=== PATIENT | female | born 1995 | race Caucasian/White ===

== ENCOUNTER 2018-03-03 11:39 | Emergency (ER) | payer SELFPAY ==
[2018-03-03] MEDS ORDERED: FLUCONAZOLE 100 MG TAB ONE (13:00)
[2018-03-03 14:29] LABS: Urine Blood NEGATIVE (NEG); Urine Glucose NEGATIVE (NEG); Urine Protein TRACE (NEG)
--- NOTE | 2018-03-03 14:35 | EDPHYS ---
Physician Documentation [facility] Name: Silvia Quintanilla Age: 22 yrs Sex: Female : 1995 Arrival Date: 03/03/2018 Time: 11:43 Bed 13 Private MD: None, None ED Physician Amadou Jason HPI: 03/03 12:54 This 22 yrs old Female presents to ER via Ambulatory with complaints of kav Abdominal Pain. 12:59 The patient presents with vaginal discharge, that is a moderate amount of white kav discharge, patient has many times. Onset: The symptoms/episode began/occurred acutely, 1 week(s) ago. Modifying factors: The symptoms are alleviated by nothing, the symptoms are aggravated by sexual intercourse, urinating. Associated signs and symptoms: Pertinent positives: cramping, urinary frequency, Pertinent negatives: fever. Severity of symptoms: At their worst the symptoms were moderate, last week. The patient is sexually active, reportedly has a single partner, does not use protection during intercourse. The patient's method of control includes nothing. The patient has experienced similar episodes in the past, chronically. 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 - Social history:: Smoking status: Patient uses tobacco products, denies chronic smoking, but will smoke occasionally. - Ebola Screening: : Patient denies travel to an Ebola-affected area in the 21 days before illness onset. - Family history:: not pertinent. - Hospitalizations: : No recent hospitalization is reported. ROS: 12:59 Constitutional: Negative for fever, chills, and weight loss, Eyes: Negative for injury, kav pain, redness, and discharge, ENT: Negative for injury, pain, and discharge, Neck: Negative for injury, pain, and swelling, Cardiovascular: Negative for chest pain, palpitations, and edema, Respiratory: Negative for shortness of breath, cough, wheezing, and pleuritic chest pain, Abdomen/GI: Negative for abdominal pain, nausea, vomiting, diarrhea, and constipation, Back: Negative for injury and pain, MS/Extremity: Negative for injury and deformity, Skin: Negative for injury, rash, and discoloration, Neuro: Negative for headache, weakness, numbness, tingling, and seizure, Psych: Negative for depression, anxiety, suicide ideation, homicidal ideation, and hallucinations, Allergy/Immunology: Negative for hives, rash, and allergies, Endocrine: Negative for neck swelling, polydipsia, polyuria, polyphagia, and marked weight changes, Hematologic/Lymphatic: Negative for swollen nodes, abnormal bleeding, and unusual bruising. 12:59 : Positive for urinary frequency, vaginal discharge, vaginal itching. Exam: 12:59 Constitutional: This is a well developed, well nourished patient who is awake, alert, kav and in no acute distress. 13:03 Head/Face: Normocephalic, atraumatic. Eyes: Pupils equal round and reactive to light, kav extra-ocular motions intact. Lids and lashes normal. Conjunctiva and sclera are non-icteric and not injected. Cornea within normal limits. Periorbital areas with no swelling, redness, or edema. ENT: Nares patent. No nasal discharge, no septal abnormalities noted. Tympanic membranes are normal and external auditory canals are clear. Oropharynx with no redness, swelling, or masses, exudates, or evidence of obstruction, uvula midline. Mucous membranes moist. Neck: Trachea midline, no thyromegaly or masses palpated, and no cervical lymphadenopathy. Supple, full range of motion without nuchal rigidity, or vertebral point tenderness. No Meningismus. Chest/axilla: Normal chest wall appearance and motion. Nontender with no deformity. No lesions are appreciated. Cardiovascular: Regular rate and rhythm with a normal S1 and S2. No gallops, murmurs, or rubs. Normal PMI, no JVD. No pulse deficits. Respiratory: Lungs have equal breath sounds bilaterally, clear to auscultation and percussion. No rales, rhonchi or wheezes noted. No increased work of breathing, no retractions or nasal flaring. Abdomen/GI: Soft, non-tender, with normal bowel sounds. No distension or tympany. No guarding or rebound. No evidence of tenderness throughout. Back: No spinal tenderness. No costovertebral tenderness. Full range of motion. Skin: Warm, dry with normal turgor. Normal color with no rashes, no lesions, and no evidence of cellulitis. MS/ Extremity: Pulses equal, no cyanosis. Neurovascular intact. Full, normal range of motion. Neuro: Awake and alert, GCS 15, oriented to person, place, time, and situation. Cranial nerves II-XII grossly intact. Motor strength 5/5 in all extremities. Sensory grossly intact. Cerebellar exam normal. Normal gait. Psych: Awake, alert, with orientation to person, place and time. Behavior, mood, and affect are within normal limits. 13:03 : Pelvic Exam: Sexual behavior: the patient is sexually active, and reports a single partner, method of control is none. Vital Signs: 12:02 BP 114 / 63; Pulse 88; Resp 16; Temp 98.6(TE); Pulse Ox 100% on R/A; Weight 52.16 kg aj1 (R); Height 5 ft. 2 in. (157.48 cm) (R); Pain 0/10; 13:00 BP 103 / 59; Pulse 51; Resp 17; Pulse Ox 99% on R/A; tw2 14:10 BP 109 / 67; Pulse 53; Resp 17; Pulse Ox 99% on R/A; tw2 14:35 BP 98 / 58; Pulse 58; Resp 17; Pulse Ox 100% on R/A; tw2 12:02 Body Mass Index 21.03 (52.16 kg, 157.48 cm) aj1 Procedures: 14:10 STD culture: Urethral swab obtained and culture sent to lab. Patient tolerated well. 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 MDM: 13:04 Medical screening is not applicable. [facility] 03/03 12:58 Order name: GC (GONORR/CHLAMYDIA) Probe [facility] 03/03 12:58 Order name: Wet Prep; Complete Time: 14:33 [facility] 03/03 13:49 Order name: Urine Dipstick--Ancillary (enter results); Complete Time: 14:33 ag 03/03 13:49 Order name: Urine --Ancillary (enter results); Complete Time: 14:33 ag 03/03 12:58 Order name: Setup-Pelvic Exam; Complete Time: 13:46 [facility] 03/03 13:02 Order name: Urine Dipstick-Ancillary (obtain specimen); Complete Time: 13:46 [facility] 03/03 13:02 Order name: Urine Test (obtain specimen); Complete Time: 13:46 kav Administered Medications: 13:00 Drug: DiFLUcan 200 mg Route: PO; tw2 13:39 Follow up: Response: No adverse reaction tw2 13:02 CANCELLED (Duplicate Order): DiFLUcan 150 mg PO once kav Disposition: 17:21 Co-signature as Attending Physician, Amadou Jason MD I agree with the assessment and kdr plan of care. Disposition: 03/03/18 14:34 Discharged to Home. Impression: Vaginitis, vulvitis and vulvovaginitis in diseases classified elsewhere, Candidiasis of vulva and vagina. - Condition is Stable. - Prescriptions for Diflucan 100 mg Oral Tablet - take 2 tablet by ORAL route Day 1 for 1 day - then take one tablet by oral route every day for 14 days.; 16 tablet. Metronidazole 0.75 % Vaginal Gel - insert 37.5 milligram by VAGINAL route once daily As needed in the morning and evening; 1 tube. - Medication Reconciliation Form, Thank You Letter, Antibiotic Education, Prescription Opioid Use, Family Work Release form. - Follow up: Private Physician; When: 5 - 6 days; Reason: If symptoms return, Recheck today's complaints, Continuance of care, Re-evaluation by your physician. - Problem is new. - Symptoms have improved. Signatures: Dispatcher [employer] EDMelonie Villegas, MIO RN aj1 Amaodu Jason MD MD kdr Vern, Katherine, POWER BUILDER DEVELOPER POWER BUILDER DEVELOPER Juanita Reed, RN RN tw2 Corrections: (The following items were deleted from the chart) 13:02 12:56 DiFLUcan 150 mg PO once ordered. kav kav 14:37 14:34 03/03/2018 14:34 Discharged to Home. Impression: Vaginitis, vulvitis and kav vulvovaginitis in diseases classified elsewhere. Condition is Stable. Forms are Family Work Release, Medication Reconciliation Form, Thank You Letter, Antibiotic Education, Prescription Opioid Use. Follow up: Private Physician; When: 5 - 6 days; Reason: If symptoms return, Recheck today's complaints, Continuance of care, Re-evaluation by your physician. Problem is new. Symptoms have improved. kav 14:48 14:37 03/03/2018 14:34 Discharged to Home. Impression: Vaginitis, vulvitis and tw2 vulvovaginitis in diseases classified elsewhere; Candidiasis of vulva and vagina. Condition is Stable. Forms are Family Work Release, Medication Reconciliation Form, Thank You Letter, Antibiotic Education, Prescription Opioid Use. Follow up: Private Physician; When: 5 - 6 days; Reason: If symptoms return, Recheck today's complaints, Continuance of care, Re-evaluation by your physician. Problem is new. Symptoms have improved. kav
--- NOTE | 2018-03-03 14:35 | ER ---
Nurse's Notes [facility] Name: Silvia Quintanilla Age: 22 yrs Sex: Female : 1995 Arrival Date: 03/03/2018 Time: 11:43 Bed 13 Private MD: None, None Diagnosis: Vaginitis, vulvitis and vulvovaginitis in diseases classified elsewhere;Candidiasis of vulva and vagina Presentation: 03/03 12:00 Presenting complaint: Patient states: "I've been having issues for the past year with aj1 yeast infections, but the past week its been getting worse. I took monostat 2 weeks ago and it was better for a few days, but then it came back worse and now I'm having cramping, discharge and I have to pee all the time" Reports yellow vaginal discharge. Transition of care: patient was not received from another setting of care. Onset of symptoms was February 2018. Risk Assessment: Do you want to hurt yourself or someone else? Patient reports no desire to harm self or others. Initial Sepsis Screen: Does the patient meet any 2 criteria? No. Patient's initial sepsis screen is negative. Does the patient have a suspected source of infection? No. Patient's initial sepsis screen is negative. Care prior to arrival: None. 12:00 Method Of Arrival: Ambulatory aj1 12:00 Acuity: KUMAR 4 aj1 Triage Assessment: 12:02 General: Appears in no apparent distress. uncomfortable, Behavior is calm, cooperative, aj1 appropriate for age. Pain: Denies pain. Neuro: Level of Consciousness is awake, alert, obeys commands. Cardiovascular: Patient's skin is warm and dry. Respiratory: Airway is patent Respiratory effort is even, unlabored, Respiratory pattern is regular, symmetrical. GI: Abdomen is non-distended, Reports cramping, Patient currently denies diarrhea, nausea, vomiting. : Reports discharge, from vagina that is yellow, urgency, urinary frequency, vaginal itching. Derm: Skin is pink, warm \\T\\ dry. normal. Musculoskeletal: Circulation, motion, and sensation intact. 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 - Social history:: Smoking status: Patient uses tobacco products, denies chronic smoking, but will smoke occasionally. - Ebola Screening: : Patient denies travel to an Ebola-affected area in the 21 days before illness onset. - Family history:: not pertinent. - Hospitalizations: : No recent hospitalization is reported. Screenin:08 Abuse screen: Denies threats or abuse. Nutritional screening: No deficits noted. tw2 Tuberculosis screening: No symptoms or risk factors identified. Fall Risk None identified. Assessment: 13:00 General: Appears in no apparent distress. slender, Behavior is calm, cooperative, tw2 appropriate for age. Pain: Complains of pain in vaginal pain like a bad cramp. Neuro: Level of Consciousness is awake, alert, obeys commands, Oriented to person, place, time, situation. Cardiovascular: Denies chest pain, shortness of breath, Heart tones S1 S2 Patient's skin is warm and dry. Respiratory: Airway is patent Respiratory effort is even, unlabored, Respiratory pattern is regular, symmetrical, Breath sounds are clear bilaterally. GI: Abdomen is flat, Bowel sounds present X 4 quads. Abd is soft and non tender X 4 quads. : No signs and/or symptoms were reported regarding the genitourinary system. Derm: No signs and/or symptoms reported regarding the dermatologic system. Musculoskeletal: Range of motion: intact in all extremities. 14:07 Reassessment: Patient appears in no apparent distress at this time. No changes from tw2 previously documented assessment. Patient and/or family updated on plan of care and expected duration. Pain level reassessed. Patient is alert, oriented x 3, equal unlabored respirations, skin warm/dry/pink. 14:35 Reassessment: Patient appears in no apparent distress at this time. No changes from tw2 previously documented assessment. Patient and/or family updated on plan of care and expected duration. Pain level reassessed. Patient is alert, oriented x 3, equal unlabored respirations, skin warm/dry/pink. Vital Signs: 12:02 BP 114 / 63; Pulse 88; Resp 16; Temp 98.6(TE); Pulse Ox 100% on R/A; Weight 52.16 kg aj1 (R); Height 5 ft. 2 in. (157.48 cm) (R); Pain 0/10; 13:00 BP 103 / 59; Pulse 51; Resp 17; Pulse Ox 99% on R/A; tw2 14:10 BP 109 / 67; Pulse 53; Resp 17; Pulse Ox 99% on R/A; tw2 14:35 BP 98 / 58; Pulse 58; Resp 17; Pulse Ox 100% on R/A; tw2 12:02 Body Mass Index 21.03 (52.16 kg, 157.48 cm) aj1 ED Course: 11:43 Patient arrived in ED. mr 11:43 None, None is Private Physician. mr 12:02 Triage completed. aj1 12:02 Arm band placed on Patient placed in waiting room, Patient notified of wait time. aj1 12:26 [facility] kav 12:26 Amadou Jason MD is Attending Physician. kav 12:44 Juanita Higuera RN is Primary Nurse. tw2 12:45 Placed in gown. Bed in low position. Adult w/ patient. Pulse ox on. NIBP on. tw2 14:06 GC (GONORR/CHLAMYDIA) Probe Sent. tw2 14:06 Wet Prep Sent. tw2 14:06 Assist provider with pelvic exam: Set up pelvic tray. Performed by Amadou Jason MD tw2 Specimens sent to lab. Patient tolerated well. 14:47 Patient did not have IV access during this emergency room visit. tw2 Administered Medications: 13:00 Drug: DiFLUcan 200 mg Route: PO; tw2 13:39 Follow up: Response: No adverse reaction tw2 13:02 CANCELLED (Duplicate Order): DiFLUcan 150 mg PO once kav Outcome: 14:34 Discharge ordered by . kav 14:47 Discharged to home ambulatory, with significant other. tw2 14:47 Condition: stable 14:47 Discharge instructions given to patient, significant other, Instructed on discharge instructions, follow up and referral plans. medication usage, Demonstrated understanding of instructions, follow-up care, medications, Prescriptions given X 2. 14:48 Patient left the ED. tw2 Signatures: Melonie Dalton RN RN aj Amna Roth FNP SPORTS MEDICINE TRAINER ka Brittany Lr mr Juanita Higuera RN RN tw2
[2018-03-06 04:25] LABS: C.trachomatis RNA,TMA Not Detected (Not Detected)
== END 2018-03-03 14:48 | disposition home or self-care (01) ==
LOC: ER 11:39
DX: B37.3 Candidiasis of vulva and vagina (principal); Z88.5 Allergy status to narcotic agent; Z91.09 Other allergy status, other than to drugs and biological substances; F17.210 Nicotine dependence, cigarettes, uncomplicated
CPT/HCPCS: 81003; 81025; 87210; 87490; 87590; 99284

== ENCOUNTER 2018-07-21 08:31 | Emergency (ER) | payer SELFPAY ==
[2018-07-21] MEDS ORDERED: METHYLPREDNISOLONE 125 MG INJ ONE (09:05)
[2018-07-21] MEDS ORDERED: ALBUTEROL 2.5 MG/3 ML NEB SOL ONE (09:05)
[2018-07-21] MEDS ORDERED: IPRATROPIUM BROM 0.5MG/2.5ML ONE (09:05)
--- NOTE | 2018-07-21 10:06 | EDPHYS ---
Physician Documentation [facility] Name: Silvia Quintanilla Age: 22 yrs Sex: Female : 1995 Arrival Date: 07/21/2018 Time: 08:33 Bed 15 Private MD: ED Physician Amadou Jason HPI: 07/21 08:58 This 22 yrs old Female presents to ER via Ambulatory with complaints of kdr Shortness Of Breath. 08:58 The patient has shortness of breath at rest, with light activity. Onset: The kdr symptoms/episode began/occurred suddenly, this morning, When she awoke from sleep this morning. Duration: The symptoms are continuous, and are unchanged since they started. The patient's shortness of breath is aggravated by coughing, exertion, light activity, walking, is alleviated by nothing. Associated signs and symptoms: Pertinent positives: dizziness, Pertinent negatives: chest pain, non-productive cough, productive cough, diaphoresis, fever, hemoptysis, loss of consciousness, nausea, numbness in extremities, visual changes. Severity of symptoms: At their worst the symptoms were moderate in the emergency department the symptoms are unchanged. The patient has not experienced similar symptoms in the past. The patient has not recently seen a physician. The patient has allergies to her cats and takes Benadryl every day. There has been no change in her exposures or medications . 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 - Social history:: Smoking status: . - Ebola Screening: : Patient denies travel to an Ebola-affected area in the 21 days before illness onset. ROS: 08:58 Constitutional: Negative for fever, chills, and weight loss, Eyes: Negative for injury, kdr pain, redness, and discharge, Neck: Negative for injury, pain, and swelling, Cardiovascular: Negative for chest pain, palpitations, and edema, Abdomen/GI: Negative for abdominal pain, nausea, vomiting, diarrhea, and constipation, Back: Negative for injury and pain, : Negative for injury, bleeding, discharge, and swelling, MS/Extremity: Negative for injury and deformity, Skin: Negative for injury, rash, and discoloration, Neuro: Negative for headache, weakness, numbness, tingling, and seizure activity. Psych: Negative for depression, anxiety, suicide ideation, homicidal ideation, and hallucinations, Allergy/Immunology: Negative for hives, rash, and allergies, Endocrine: Negative for neck swelling, polydipsia, polyuria, polyphagia, and marked weight changes, Hematologic/Lymphatic: Negative for swollen nodes, abnormal bleeding, and unusual bruising. 08:58 Respiratory: Positive for cough, with no reported sputum, dyspnea on exertion, shortness of breath, at rest. Negative for hemoptysis, orthopnea, pleurisy, sputum production. Exam: 08:58 Constitutional: This is a well developed, well nourished patient who is awake, alert, kdr and in no acute distress. Head/Face: Normocephalic, atraumatic. Eyes: Pupils equal round and reactive to light, extra-ocular motions intact. Lids and lashes normal. Conjunctiva and sclera are non-icteric and not injected. Cornea within normal limits. Periorbital areas with no swelling, redness, or edema. Neck: Trachea midline, no thyromegaly or masses palpated, and no cervical lymphadenopathy. Supple, full range of motion without nuchal rigidity, or vertebral point tenderness. No Meningismus. Chest/axilla: Normal chest wall appearance and motion. Nontender with no deformity. No lesions are appreciated. Cardiovascular: Regular rate and rhythm with a normal S1 and S2. No gallops, murmurs, or rubs. Normal PMI, no JVD. No pulse deficits. Abdomen/GI: Soft, non-tender, with normal bowel sounds. No distension or tympany. No guarding or rebound. No evidence of tenderness throughout. Back: No spinal tenderness. No costovertebral tenderness. Full range of motion. Skin: Warm, dry with normal turgor. Normal color with no rashes, no lesions, and no evidence of cellulitis. MS/ Extremity: Pulses equal, no cyanosis. Neurovascular intact. Full, normal range of motion. Neuro: Awake and alert, GCS 15, oriented to person, place, time, and situation. Cranial nerves II-XII grossly intact. Motor strength 5/5 in all extremities. Sensory grossly intact. Cerebellar exam normal. Normal gait. Psych: Awake, alert, with orientation to person, place and time. Behavior, mood, and affect are within normal limits. 08:58 Respiratory: the patient does not display signs of respiratory distress, mild respiratory distress is noted, Respirations: labored breathing, that is mild, Breath sounds: decreased breath sounds, that are mild, are heard in the left posterior upper lobe and left posterior lower lobe, rhonchi, are not appreciated, stridor, is not appreciated, wheezing: is not appreciated. Vital Signs: 08:44 BP 119 / 86; Pulse 77; Resp 18; Temp 98.1(O); Pulse Ox 100% on R/A; Pain 0/10; tw2 09:45 BP 115 / 52; Pulse 77; Resp 18; Pulse Ox 99% on R/A; tw2 10:06 BP 114 / 64; Pulse 78; Resp 17; Pulse Ox 99% on R/A; tw2 MDM: 08:58 Data reviewed: vital signs, nurses notes, lab test result(s), radiologic studies. kdr 10:05 Patient medically screened. kdr 07/21 08:57 Order name: CXR XRAY kdr 07/21 09:07 Order name: IV Start; Complete Time: 09:07 tw2 Administered Medications: 09:00 Drug: Albuterol - atroVENT (3:1) (2.5 mg - 0.5 mg) 3 ml Route: Nebulizer; tw2 09:44 Follow up: Response: No adverse reaction tw2 09:03 Drug: SOLU-Medrol 125 mg Route: IVP; Site: right antecubital; tw2 09:45 Follow up: Response: No adverse reaction tw2 Disposition: 07/21/18 10:05 Discharged to Home. Impression: Bronchitis, not specified as acute or chronic, Pet allergies. - Condition is Stable. - Discharge Instructions: Acute Bronchitis, Arky-nj-Hygy, Steps to Quit Smoking, Qjik-ko-Nylp. - Prescriptions for Pepcid 20 mg Oral Tablet - take 1 tablet by ORAL route every 12 hours for 5 days; 10 tablet. Medrol (Castro) 4 mg Oral Tablets, Dose Pack - take 1 tablet by ORAL route as directed - follow package instructions; 1 packet. Albuterol Sulfate 90 mcg/actuation - inhale 1-2 puff by INHALATION route every 4-6 hours; 1 Inhaler. Benadryl 25 mg Oral Capsule - take 1 capsule by ORAL route every 6 hours As needed; 30 tablet. - Medication Reconciliation Form, Thank You Letter, Work release form form. - Follow up: Private Physician; When: 2 - 3 days; Reason: If symptoms return, Further diagnostic work-up, Recheck today's complaints, Continuance of care, Re-evaluation by your physician. - Problem is new. - Symptoms have improved. Signatures: Dispatcher [employer] EDCA Amadou Jason MD MD kdr Juanita Higuera RN RN tw2 Corrections: (The following items were deleted from the chart) 10:11 10:05 07/21/2018 10:05 Discharged to Home. Impression: Bronchitis, not specified as tw2 acute or chronic; Pet allergies. Condition is Stable. Forms are Work release form, Medication Reconciliation Form, Thank You Letter, Antibiotic Education, Prescription Opioid Use. Follow up: Private Physician; When: 2 - 3 days; Reason: If symptoms return, Further diagnostic work-up, Recheck today's complaints, Continuance of care, Re-evaluation by your physician. Problem is new. Symptoms have improved. kdr
--- NOTE | 2018-07-21 10:06 | ER ---
Nurse's Notes [facility] Name: Silvia Quintanilla Age: 22 yrs Sex: Female : 1995 Arrival Date: 07/21/2018 Time: 08:33 Bed 15 Private MD: Diagnosis: Bronchitis, not specified as acute or chronic;Pet allergies Presentation: 07/21 08:44 Presenting complaint: Patient states: i woke up at 7 am this morning and couldn't tw2 breath. Transition of care: patient was not received from another setting of care. Onset of symptoms was July 21, 2018. Risk Assessment: Do you want to hurt yourself or someone else? Patient reports no desire to harm self or others. Initial Sepsis Screen: Does the patient meet any 2 criteria? No. Patient's initial sepsis screen is negative. Does the patient have a suspected source of infection? No. Patient's initial sepsis screen is negative. Care prior to arrival: None. 08:44 Method Of Arrival: Ambulatory tw2 08:44 Acuity: KUMAR 4 tw2 Triage Assessment: 08:47 General: Appears in no apparent distress. Respiratory: Reports shortness of breath tw2 Onset: The symptoms/episode began/occurred this morning, the patient has mild shortness of breath. 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 - Social history:: Smoking status: . - Ebola Screening: : Patient denies travel to an Ebola-affected area in the 21 days before illness onset. Screenin:47 Abuse screen: Denies threats or abuse. Nutritional screening: No deficits noted. tw2 Tuberculosis screening: No symptoms or risk factors identified. Fall Risk None identified. Assessment: 08:45 General: Appears in no apparent distress. slender, Behavior is calm, cooperative, tw2 appropriate for age. Pain: Denies pain. Neuro: Level of Consciousness is awake, alert, obeys commands, Oriented to person, place, time, situation. Cardiovascular: Heart tones S1 S2 Capillary refill < 3 seconds Patient's skin is warm and dry. Rhythm is regular. Respiratory: Airway is patent Respiratory effort is even, unlabored, Respiratory pattern is regular, symmetrical, Breath sounds are diminished in left upper lobe, left lower lobe, left posterior upper lobe and left posterior lower lobe. GI: No signs and/or symptoms were reported involving the gastrointestinal system. Abdomen is flat, Bowel sounds present X 4 quads. : No signs and/or symptoms were reported regarding the genitourinary system. EENT: No signs and/or symptoms were reported regarding the EENT system. Derm: No signs and/or symptoms reported regarding the dermatologic system. Musculoskeletal: Range of motion: intact in all extremities. 09:45 Reassessment: Patient appears in no apparent distress at this time. Patient and/or tw2 family updated on plan of care and expected duration. Pain level reassessed. Patient is alert, oriented x 3, equal unlabored respirations, skin warm/dry/pink. Patient states symptoms have improved. 10:07 Reassessment: Patient appears in no apparent distress at this time. Patient and/or tw2 family updated on plan of care and expected duration. Pain level reassessed. Patient is alert, oriented x 3, equal unlabored respirations, skin warm/dry/pink. Vital Signs: 08:44 BP 119 / 86; Pulse 77; Resp 18; Temp 98.1(O); Pulse Ox 100% on R/A; Pain 0/10; tw2 09:45 BP 115 / 52; Pulse 77; Resp 18; Pulse Ox 99% on R/A; tw2 10:06 BP 114 / 64; Pulse 78; Resp 17; Pulse Ox 99% on R/A; tw2 ED Course: 08:33 Patient arrived in ED. rg4 08:39 Amadou Jason MD is Attending Physician. kdr 08:44 Juanita Higuera RN is Primary Nurse. tw2 08:44 Triage completed. tw2 08:47 Bed in low position. Call light in reach. outpatient phlebotomist on. Pulse ox on. NIBP on. tw2 08:47 Arm band placed on. tw2 09:00 Missed attempt(s): 22 gauge in right antecubital area. Bleeding controlled, band aid tw2 applied, catheter tip intact. Inserted saline lock: 22 gauge in right antecubital area, using aseptic technique. Blood collected. 09:44 CXR XRAY In Process Unspecified. EDMS 10:07 No provider procedures requiring assistance completed. IV discontinued, intact, tw2 bleeding controlled, No redness/swelling at site. Pressure dressing applied. Administered Medications: 09:00 Drug: Albuterol - atroVENT (3:1) (2.5 mg - 0.5 mg) 3 ml Route: Nebulizer; tw2 09:44 Follow up: Response: No adverse reaction tw2 09:03 Drug: SOLU-Medrol 125 mg Route: IVP; Site: right antecubital; tw2 09:45 Follow up: Response: No adverse reaction tw2 Outcome: 10:05 Discharge ordered by . kdr 10:11 Discharged to home ambulatory. tw2 10:11 Condition: stable 10:11 Discharge instructions given to patient, Instructed on discharge instructions, follow up and referral plans. medication usage, Demonstrated understanding of instructions, follow-up care, medications, Prescriptions given X 4. 10:11 Patient left the ED. tw2 Signatures: Dispatcher [employer] Amadou Moss MD MD kdr Juanita Higuera RN RN tw2 Dione Mata rg4
--- NOTE | 2018-07-21 11:03 | RAD REPORT ---
EXAM DESCRIPTION: RAD - Chest Single View - 07/21/2018 9:44 am CLINICAL HISTORY: Dyspnea COMPARISON: None. TECHNIQUE: AP portable chest image was obtained 0933 hours . FINDINGS: Lungs are clear. Heart and vasculature are normal. No measurable pleural effusion and no p neumothorax. No acute bony abnormality seen. No acute aortic findings suspected. IMPRESSION: No acute cardiopulmonary process.
== END 2018-07-21 10:11 | disposition home or self-care (01) ==
LOC: ER 08:31
DX: J40 Bronchitis, not specified as acute or chronic (principal); J30.81 Allergic rhinitis due to animal (cat) (dog) hair and dander; Z88.5 Allergy status to narcotic agent
CPT/HCPCS: 71045; 94640; 96374; 99285; J2930